=== PATIENT | male | born 1945 | race African-American/Black ===

== ENCOUNTER 2022-07-08 15:57 | Inpatient (IN) | payer MEDICARE, MEDICAID ==
[~2022-07-08] VITALS: Ht 144.8 cm; Wt 85.2 kg
[2022-07-08] MEDS ORDERED: HYDROCORTISONE SOD SUCC 100 MG/2 ML VIAL IVP ONE (16:15)
[2022-07-08] MEDS ORDERED: SODIUM CHLORIDE 0.9% 1,000 ML IV ONE (16:15)
[2022-07-08 16:37] LABS: ABG BASE EXCESS -8.1 mmol/L (-2.0-3.0); ABG CARBOXYHEMOGLOBIN 0.7 % (0.0-1.5); ABG HCO3 17.9 mmol/L (22.0-26.0); ABG METHEMOGLOBIN 0.1 % (0.0-1.5); ABG OXYGEN CONTENT 11.2 mL/dL (15.0-23.0); ABG OXYHEMOGLOBIN 76.3 % (94.0-100.0); ABG PCO2 41 mmHg (35-45); ABG PH 7.278 (7.35-7.450); ABG TOTAL HEMOGLOBIN 10.4 G/dL (12.0-18.0); PO2, ARTERIAL BG 42.4 mmHg (75.0-83.0); SOURCE, BLOOD GAS ARTERIAL; TEMPERATURE, FAHRENHEIT, BG 97.7 FAHREN (96.0-98.6)
[2022-07-08 16:38] LABS: ABG OXYGEN SATURATION 76.9 % (95.0-98.0); O2 DEVICE,BLOOD GAS CANNULA (ROOM AIR); SITE, BLOOD GAS RT BRACHIAL
[2022-07-08] MEDS ORDERED: FUROSEMIDE 40 MG/4 ML VIAL IVP ONE (16:45)
[2022-07-08 17:21] LABS: BASOPHILS % (AUTO) 0.5 % (0.0-2.0); EOSINOPHILS % (AUTO) 0.2 % (1.0-6.0); HEMATOCRIT 31.5 % (41-53); HEMOGLOBIN 9.7 g/dL (13.5-17.5); LYMPHOCYTES # (AUTO) 0.4 K/uL (1.0-4.8); MEAN CORPUSCULAR HEMOGLOBIN 29.9 pg (26.0-34.0); MEAN CORPUSCULAR HGB CONC 30.9 G/dL (31.0-37.0); MEAN CORPUSCULAR VOLUME 97 fL (80-100); MONOCYTES # (AUTO) 0.2 K/uL (0.1-1.0); MONOCYTES % (AUTO) 2.5 % (2.0-9.0); NEUTROPHILS # (AUTO) 7.4 K/uL (1.8-7.7); PLATELET COUNT (AUTO) 112 K/uL (150-450); RED BLOOD CELL COUNT(AUTO) 3.25 MIL/uL (4.50-5.90); RED CELL DISTRIBUTION WIDTH 23.9 % (11.5-14.5)
[2022-07-08 17:23] LABS: NEUTROPHILS % (AUTO) 91.8 % (40.0-70.0)
[2022-07-08 17:36] LABS: ALBUMIN 1.7 g/dL (3.4-5.0); BILIRUBIN,TOTAL 0.5 mg/dL (0.1-1.0); CALCIUM, TOTAL 7.4 mg/dL (8.8-10.5); CREATININE 3.49 mg/dL (0.60-1.30); POTASSIUM 4.9 mmol/L (3.5-5.1); TOTAL PROTEIN, SERUM 5.4 g/dL (6.4-8.2)
[2022-07-08 17:38] LABS: COVID AG,FIA SOURCE NASOPHARYNGEAL
[2022-07-08 17:38] LABS: LACTIC ACID 0.9 mmol/L (0.4-2.0)
[2022-07-08 17:48] LABS: APPEARANCE,URINE TURBID (CLEAR); BILIRUBIN,URINE NEGATIVE (NEGATIVE); GLUCOSE, URINE (UA) NEGATIVE (NEGATIVE); KETONES,URINE NEGATIVE (NEGATIVE); LEUKOCYTE ESTERASE ,URINE LARGE (NEGATIVE); NITRATE,URINE NEGATIVE (NEGATIVE); OCCULT BLOOD,URINE LARGE (NEGATIVE); PROTEIN,URINE 100-200,SEE CONFIRM mg/dL (NEGATIVE); SPECIFIC GRAVITIY, URINE 1.012 (1.003-1.030); UROBILINOGEN,URINE <=1.0 mg/dL (<=1.0)
[2022-07-08 18:03] LABS: BACTERIA,URINE Few /HPF (None Seen); RBC,URINE 26-50 /HPF (0-2); SQUAMOUS EPITHELIAL CELL,UR Few /LPF (None Seen); SULFOSALICYLIC ACID,URINE 3+ (Negative); WBC,URINE 51-100 /HPF (0-5); YEAST,URINE Many /HPF (None Seen)
[2022-07-08] MEDS ORDERED: CefTRIAXone 1 GM/DEXTROSE 50 ML IV ONE (18:15)
[2022-07-08] MEDS ORDERED: ACETAMINOPHEN 325 MG TABLET PO PRN (18:30)
[2022-07-08] MEDS ORDERED: ONDANSETRON HCL 4 MG/2 ML VIAL IVP PRN (18:30)
[2022-07-08 18:45] LABS: CREATININE,URINE RANDOM 43.7 mg/dL (30.0-125.0)
[2022-07-08 20:14] LABS: ABG BASE EXCESS -9.3 mmol/L (-2.0-3.0); ABG HCO3 17.4 mmol/L (22.0-26.0); ABG METHEMOGLOBIN 0.3 % (0.0-1.5); ABG OXYGEN CONTENT 12.5 mL/dL (15.0-23.0); ABG OXYHEMOGLOBIN 81.8 % (94.0-100.0); ABG PCO2 32 mmHg (35-45); ABG PH 7.332 (7.35-7.450); ABG TOTAL HEMOGLOBIN 10.9 G/dL (12.0-18.0); SOURCE, BLOOD GAS ARTERIAL; TEMPERATURE, FAHRENHEIT, BG 94.1 FAHREN (96.0-98.6)
[2022-07-08 20:15] LABS: PO2, ARTERIAL BG 38.2 mmHg (75.0-83.0)
[2022-07-08 20:16] LABS: ABG A-A DIFF O2 648.6 mmHg (10-20.0); O2 DEVICE,BLOOD GAS BIPAP (ROOM AIR); SITE, BLOOD GAS RT BRACHIAL
[2022-07-08 20:17] LABS: INSPIRATORY TIME, BG 0.9 SEC; SPONTANEOUS VT, BG 847 ml
[2022-07-08 20:26] LABS: GLUCOSE,POINT OF CARE 140 MG/DL (70-110)
[2022-07-08] MEDS ORDERED: *CLINICAL-CEFEPIME DOSING CLINICAL ONE (20:45)
[2022-07-08] MEDS ORDERED: ETOMIDATE 2 MG/ML 10 ML VIAL IVP ONE (21:00)
[2022-07-08] MEDS ORDERED: ROCURONIUM BROMIDE 10 MG/ML 5 ML VIAL IVP ONE (21:00)
[2022-07-08] MEDS ORDERED: FentaNYL CIT 1000MCG/0.9% NACL 100 ML IV PRN (21:00)
[2022-07-08] MEDS: CHLORHEXIDINE GLUCONATE 0.12% 15 ML UDCUP ORAL RINSE MM SCH (21:00)
[2022-07-08] MEDS ORDERED: MIDAZOLAM HCL 100 MG in SODIUM CHLORIDE 0.9% 180 ML IV PRN (21:00)
[2022-07-08] MEDS: TACROLIMUS 1 MG CAPSULE PO SCH ×2 (21:00→23:41)
[2022-07-08] MEDS ORDERED: CEFEPIME HCL 0.5 GM in DEXTROSE 5%-WATER 50 ML IV ONE (21:30)
[2022-07-08] MEDS ORDERED: VANCOMYCIN HCL 1.25 GM in DEXTROSE 5%-WATER 250 ML IV ONE (21:30)
[2022-07-08] MEDS ORDERED: VANCOMYCIN HCL 1 GM in DEXTROSE 5%-WATER 250 ML IV SCH (21:30)
[2022-07-08] MEDS: FentaNYL CIT 1000MCG/0.9% NACL 100 ML IV PRN (21:33)
[2022-07-08] MEDS ORDERED: DEXTROSE 50%-WATER 25 GM/50 ML SYRINGE IVP PRN (21:45)
[2022-07-08 22:43] LABS: ABG A-A DIFF O2 596.1 mmHg (10-20.0); ABG HCO3 16.6 mmol/L (22.0-26.0); ABG METHEMOGLOBIN 0.3 % (0.0-1.5); ABG OXYGEN CONTENT 15.3 mL/dL (15.0-23.0); ABG OXYHEMOGLOBIN 97.7 % (94.0-100.0); ABG PCO2 28 mmHg (35-45); ABG PH 7.343 (7.35-7.450); PO2, ARTERIAL BG 94.7 mmHg (75.0-83.0); SITE, BLOOD GAS RT BRACHIAL; SOURCE, BLOOD GAS ARTERIAL; TEMPERATURE, FAHRENHEIT, BG 94.5 FAHREN (96.0-98.6)
[2022-07-08 22:44] LABS: O2 DEVICE,BLOOD GAS VENTILATOR (ROOM AIR); PEEP,BG 5 cm H2O; SPONTANEOUS VT, BG 506 ml; VT, ABG 500 ml
[2022-07-09] MEDS: HEPARIN SODIUM,PORCINE 5,000 UNITS/ML VIAL SQ SCH ×4 (00:40→23:59)
[2022-07-09] MEDS: TACROLIMUS 1 MG CAPSULE PO SCH ×3 (01:16→20:53)
[2022-07-09] MEDS ORDERED: HYDROCORTISONE SOD SUCC 100 MG/2 ML VIAL IVP SCH (01:18)
[2022-07-09 04:00] LABS: AMPHET/METH SCREEN,URINE NEGATIVE (NEGATIVE); BARBITURATE SCREEN, URINE NEGATIVE (NEGATIVE); BENZODIAZEPINES SCREEN,URINE POSITIVE (NEGATIVE); CANNABINOID SCREEN,URINE NEGATIVE (NEGATIVE); COCAINE SCREEN,URINE NEGATIVE (NEGATIVE); METHADONE SCREEN, URINE NEGATIVE (NEGATIVE); OPIATE SCREEN,URINE NEGATIVE (NEGATIVE)
[2022-07-09 04:01] LABS: PHENCYCLIDINE SCREEN,URINE NEGATIVE (NEGATIVE)
[2022-07-09 05:00] VITALS: BP 110/54
[2022-07-09 06:25] LABS: BASOPHILS % (AUTO) 0.2 % (0.0-2.0); EOSINOPHILS % (AUTO) 0 % (1.0-6.0); HEMATOCRIT 31.9 % (41-53); LYMPHOCYTES # (AUTO) 0.3 K/uL (1.0-4.8); LYMPHOCYTES % (AUTO) 4.5 % (22.0-44.0); MEAN CORPUSCULAR HGB CONC 31.3 G/dL (31.0-37.0); MEAN CORPUSCULAR VOLUME 96 fL (80-100); MONOCYTES # (AUTO) 0.1 K/uL (0.1-1.0); MONOCYTES % (AUTO) 1.9 % (2.0-9.0); NEUTROPHILS # (AUTO) 5.4 K/uL (1.8-7.7); PLATELET COUNT (AUTO) 111 K/uL (150-450); RED BLOOD CELL COUNT(AUTO) 3.33 MIL/uL (4.50-5.90); RED CELL DISTRIBUTION WIDTH 23.7 % (11.5-14.5)
[2022-07-09 06:30] LABS: CALCIUM, TOTAL 7.2 mg/dL (8.8-10.5); CREATININE 3.67 mg/dL (0.60-1.30); MAGNESIUM 1.6 mg/dL (1.80-2.40); PHOSPHORUS 7.3 mg/dL (2.5-4.9); POTASSIUM 4.5 mmol/L (3.5-5.1)
[2022-07-09 06:39] LABS: NEUTROPHILS % (AUTO) 93.4 % (40.0-70.0)
[2022-07-09 07:00] VITALS: BP 93/46
[2022-07-09 08:00] VITALS: BP 95/49
[2022-07-09] MEDS ORDERED: MAGNESIUM SULFATE 1 GM in DEXTROSE 5%-WATER 50 ML IV ONE (10:00)
[2022-07-09] MEDS: HYDROCORTISONE SOD SUCC 100 MG/2 ML VIAL IVP SCH ×3 (10:09→23:59)
[2022-07-09] MEDS: SODIUM BICARBONATE 75 MEQ in SODIUM CHLORIDE 0.45% 1,000 ML IV SCH ×2 (10:09→23:59)
[2022-07-09] MEDS: CHLORHEXIDINE GLUCONATE 0.12% 15 ML UDCUP ORAL RINSE MM SCH ×2 (10:09→23:59)
[2022-07-09] MEDS ORDERED: SODIUM CHLORIDE 0.9% 250 ML IV ONE (10:15)
[2022-07-09] MEDS: INSULIN LISPRO 100 UNITS/ML SQ PRN (11:29)
[2022-07-09 11:51] LABS: GLUCOSE,POINT OF CARE 162 MG/DL (70-110)
[2022-07-09 11:51] LABS: GLUCOSE,POINT OF CARE 179 MG/DL (70-110)
[2022-07-09 12:00] VITALS: BP 92/46
[2022-07-09 16:00] VITALS: BP 113/57
[2022-07-09] MEDS ORDERED: ACETYLCYSTEINE 10% 100 MG/ML 30 ML ORAL SOLUTION PO ONE (17:42)
[2022-07-09] MEDS ORDERED: LIDOCAINE 4% 50 ML SOLUTION TP ONE (17:42)
[2022-07-09] MEDS: FentaNYL CIT 1000MCG/0.9% NACL 100 ML IV PRN (17:54)
[2022-07-09] MEDS ORDERED: CefTRIAXone 1 GM/DEXTROSE 50 ML IV SCH (18:15)
[2022-07-09 19:16] LABS: GLUCOSE,POINT OF CARE 146 MG/DL (70-110)
[2022-07-09 20:00] VITALS: BP 108/87
[2022-07-09] MEDS: CEFEPIME HCL 1 GM in DEXTROSE 5%-WATER 50 ML IV SCH (20:34)
[2022-07-09] MEDS: ACETYLCYSTEINE 10% 100 MG/ML 4 ML NEB SOLUTION NEB SCH (23:14)
[2022-07-09] MEDS: ALBUTEROL SULFATE 2.5 MG/0.5 ML NEB SOLUTION NEB SCH (23:14)
[2022-07-10] VITALS: BP 108/87
[2022-07-10] MEDS: INSULIN LISPRO 100 UNITS/ML SQ PRN ×4 (00:05→22:40)
[2022-07-10 00:26] LABS: GLUCOSE,POINT OF CARE 179 MG/DL (70-110)
[2022-07-10] MEDS: ALBUTEROL SULFATE 2.5 MG/0.5 ML NEB SOLUTION NEB SCH ×6 (02:13→22:35)
[2022-07-10] MEDS: ACETYLCYSTEINE 10% 100 MG/ML 4 ML NEB SOLUTION NEB SCH ×6 (02:13→22:35)
[2022-07-10 04:00] VITALS: BP 108/87
[2022-07-10 05:32] LABS: GLUCOSE,POINT OF CARE 152 MG/DL (70-110)
[2022-07-10 07:58] LABS: CALCIUM, TOTAL 7.2 mg/dL (8.8-10.5); POTASSIUM 4.3 mmol/L (3.5-5.1)
[2022-07-10 08:00] VITALS: BP 114/52
[2022-07-10] MEDS: HEPARIN SODIUM,PORCINE 5,000 UNITS/ML VIAL SQ SCH ×2 (08:25→15:40)
[2022-07-10] MEDS: CHLORHEXIDINE GLUCONATE 0.12% 15 ML UDCUP ORAL RINSE MM SCH ×2 (08:25→20:11)
[2022-07-10] MEDS: TACROLIMUS 1 MG CAPSULE PO SCH (08:26)
[2022-07-10] MEDS: HYDROCORTISONE SOD SUCC 100 MG/2 ML VIAL IVP SCH ×2 (08:26→15:40)
[2022-07-10] MEDS ORDERED: MIDAZOLAM HCL 100 MG in SODIUM CHLORIDE 0.9% 180 ML IV PRN (08:45)
[2022-07-10] MEDS ORDERED: PROPOFOL 1000 MG/ISO-OSM 100 ML IV PRN (08:45)
[2022-07-10 09:15] LABS: MAGNESIUM 1.7 mg/dL (1.80-2.40); PHOSPHORUS 7.7 mg/dL (2.5-4.9)
[2022-07-10] MEDS ORDERED: VANCOMYCIN HCL 1 GM in DEXTROSE 5%-WATER 250 ML IV PRN (10:15)
[2022-07-10] MEDS ORDERED: NOREPINEPHRINE 8 MG/D5%-WATER 250 ML IV PRN (10:15)
[2022-07-10 12:00] VITALS: BP 107/42
[2022-07-10] MEDS: FLUCONAZOLE 200 MG/NACL ISOOSM 100 ML IV SCH (14:22)
[2022-07-10] MEDS: FentaNYL CIT 1000MCG/0.9% NACL 100 ML IV PRN (14:27)
[2022-07-10 15:06] LABS: GLUCOSE,POINT OF CARE 148 MG/DL (70-110)
[2022-07-10] MEDS: SODIUM BICARBONATE 75 MEQ in SODIUM CHLORIDE 0.45% 1,000 ML IV SCH (15:36)
[2022-07-10 16:00] VITALS: BP 117/48
[2022-07-10 19:26] LABS: GLUCOSE,POINT OF CARE 153 MG/DL (70-110)
[2022-07-10 20:00] VITALS: BP 101/40
[2022-07-10] MEDS: CEFEPIME HCL 1 GM in DEXTROSE 5%-WATER 50 ML IV SCH (20:10)
[2022-07-11] VITALS: BP 101/53
[2022-07-11] MEDS: HYDROCORTISONE SOD SUCC 100 MG/2 ML VIAL IVP SCH ×3 (00:24→15:39)
[2022-07-11] MEDS: HEPARIN SODIUM,PORCINE 5,000 UNITS/ML VIAL SQ SCH ×3 (00:24→15:40)
[2022-07-11] MEDS: ACETYLCYSTEINE 10% 100 MG/ML 4 ML NEB SOLUTION NEB SCH ×6 (01:55→22:37)
[2022-07-11] MEDS: ALBUTEROL SULFATE 2.5 MG/0.5 ML NEB SOLUTION NEB SCH ×6 (01:55→22:37)
[2022-07-11 04:00] VITALS: BP 101/41
[2022-07-11 05:51] LABS: GLUCOSE,POINT OF CARE 155 MG/DL (70-110)
[2022-07-11] MEDS: INSULIN LISPRO 100 UNITS/ML SQ PRN ×4 (05:51→21:37)
[2022-07-11] MEDS: FentaNYL CIT 1000MCG/0.9% NACL 100 ML IV PRN (06:18)
[2022-07-11] MEDS: SODIUM BICARBONATE 75 MEQ in SODIUM CHLORIDE 0.45% 1,000 ML IV SCH ×2 (06:18→21:37)
[2022-07-11 06:19] LABS: CALCIUM, TOTAL 7.2 mg/dL (8.8-10.5); CREATININE 4.06 mg/dL (0.60-1.30); POTASSIUM 4.6 mmol/L (3.5-5.1)
[2022-07-11 06:23] LABS: MAGNESIUM 1.7 mg/dL (1.80-2.40)
[2022-07-11 06:34] LABS: VANCOMYCIN,RANDOM 12.1 mcg/mL (25.0-50.0)
[2022-07-11 07:01] LABS: GLUCOSE,POINT OF CARE 163 MG/DL (70-110)
[2022-07-11 08:00] VITALS: BP 112/48
[2022-07-11] MEDS: CHLORHEXIDINE GLUCONATE 0.12% 15 ML UDCUP ORAL RINSE MM SCH ×2 (08:05→20:34)
[2022-07-11] MEDS ORDERED: VANCOMYCIN HCL 750 MG in DEXTROSE 5%-WATER 250 ML IV ONE (10:00)
[2022-07-11 12:00] VITALS: BP 108/52
[2022-07-11] MEDS ORDERED: VANCOMYCIN HCL 1 GM in SODIUM CHLORIDE 0.9% 250 ML IV PRN (12:14)
[2022-07-11] MEDS ORDERED: NOREPINEPHRINE BITARTRATE IV PRN (12:15)
[2022-07-11] MEDS ORDERED: SODIUM CHLORIDE 0.9% IV PRN (12:15)
[2022-07-11 13:31] LABS: GLUCOSE,POINT OF CARE 167 MG/DL (70-110)
[2022-07-11 13:31] LABS: GLUCOSE,POINT OF CARE 158 MG/DL (70-110)
[2022-07-11] MEDS: FLUCONAZOLE 200 MG/NACL ISOOSM 100 ML IV SCH (14:24)
[2022-07-11] MEDS: VANCOMYCIN HCL 125 MG/2.5 ML SOLUTION ORAL.SYG PO SCH ×2 (14:25→18:52)
[2022-07-11] MEDS: MetroNIDAZOLE 500 MG TABLET PO SCH (15:39)
[2022-07-11 16:00] VITALS: BP 98/37
[2022-07-11 20:00] VITALS: BP 138/73
[2022-07-11] MEDS: CEFEPIME HCL 1 GM in DEXTROSE 5%-WATER 50 ML IV SCH (20:33)
[2022-07-11] MEDS: CEFEPIME HCL 1 GM in SODIUM CHLORIDE 0.9% 50 ML IV SCH (20:34)
[2022-07-11 21:01] LABS: GLUCOSE,POINT OF CARE 171 MG/DL (70-110)
[2022-07-12] VITALS: BP 138/73
[2022-07-12] MEDS: HYDROCORTISONE SOD SUCC 100 MG/2 ML VIAL IVP SCH ×4 (00:08→23:35)
[2022-07-12] MEDS: HEPARIN SODIUM,PORCINE 5,000 UNITS/ML VIAL SQ SCH ×4 (00:09→23:35)
[2022-07-12] MEDS: VANCOMYCIN HCL 125 MG/2.5 ML SOLUTION ORAL.SYG PO SCH ×5 (00:09→23:35)
[2022-07-12] MEDS: MetroNIDAZOLE 500 MG TABLET PO SCH ×4 (00:09→23:35)
[2022-07-12 01:46] LABS: GLUCOSE,POINT OF CARE 144 MG/DL (70-110)
[2022-07-12] MEDS ORDERED: SODIUM CHLORIDE 0.9% 250 ML IV ONE (03:27)
[2022-07-12] MEDS: ACETYLCYSTEINE 10% 100 MG/ML 4 ML NEB SOLUTION NEB SCH ×6 (03:52→23:00)
[2022-07-12] MEDS: ALBUTEROL SULFATE 2.5 MG/0.5 ML NEB SOLUTION NEB SCH ×6 (03:52→23:00)
[2022-07-12 04:00] VITALS: BP 146/95
[2022-07-12] MEDS: INSULIN LISPRO 100 UNITS/ML SQ PRN ×2 (05:41→20:33)
[2022-07-12 06:46] LABS: GLUCOSE,POINT OF CARE 148 MG/DL (70-110)
[2022-07-12 07:10] LABS: BASOPHILS % (AUTO) 0.2 % (0.0-2.0); EOSINOPHILS % (AUTO) 0 % (1.0-6.0); HEMATOCRIT 33.3 % (41-53); HEMOGLOBIN 10.5 g/dL (13.5-17.5); LYMPHOCYTES # (AUTO) 0.4 K/uL (1.0-4.8); LYMPHOCYTES % (AUTO) 4.5 % (22.0-44.0); MEAN CORPUSCULAR HGB CONC 31.7 G/dL (31.0-37.0); MEAN CORPUSCULAR VOLUME 95 fL (80-100); MONOCYTES # (AUTO) 0.4 K/uL (0.1-1.0); NEUTROPHILS # (AUTO) 8.1 K/uL (1.8-7.7); NEUTROPHILS % (AUTO) 91.3 % (40.0-70.0); PLATELET COUNT (AUTO) 101 K/uL (150-450); RED BLOOD CELL COUNT(AUTO) 3.52 MIL/uL (4.50-5.90); RED CELL DISTRIBUTION WIDTH 22.2 % (11.5-14.5)
[2022-07-12 07:24] LABS: ALBUMIN 1.8 g/dL (3.4-5.0); BILIRUBIN,TOTAL 0.4 mg/dL (0.1-1.0); CALCIUM, TOTAL 7.2 mg/dL (8.8-10.5); CREATININE 4.12 mg/dL (0.60-1.30); TOTAL PROTEIN, SERUM 5.4 g/dL (6.4-8.2)
[2022-07-12 07:32] LABS: C-REACTIVE PROTEIN QUANT 3.49 mg/dL (0.00-0.30)
[2022-07-12 08:00] VITALS: BP 161/87
[2022-07-12] MEDS: CHLORHEXIDINE GLUCONATE 0.12% 15 ML UDCUP ORAL RINSE MM SCH ×2 (08:09→20:23)
[2022-07-12 09:36] LABS: ABG BASE EXCESS -5.5 mmol/L (-2.0-3.0); ABG CARBOXYHEMOGLOBIN 0.6 % (0.0-1.5); ABG HCO3 20.3 mmol/L (22.0-26.0); ABG METHEMOGLOBIN 0.3 % (0.0-1.5); ABG OXYGEN CONTENT 13.1 mL/dL (15.0-23.0); ABG OXYHEMOGLOBIN 83.9 % (94.0-100.0); ABG PCO2 33 mmHg (35-45); ABG PH 7.388 (7.35-7.450); ABG TOTAL HEMOGLOBIN 11.1 G/dL (12.0-18.0); PO2, ARTERIAL BG 45.7 mmHg (75.0-83.0); SOURCE, BLOOD GAS ARTERIAL; TEMPERATURE, FAHRENHEIT, BG 97.4 FAHREN (96.0-98.6)
[2022-07-12 09:39] LABS: ABG OXYGEN SATURATION 84.7 % (95.0-98.0); SITE, BLOOD GAS RT BRACHIAL
[2022-07-12 09:40] LABS: CPAP, BG 5 cm H2O; O2 DEVICE,BLOOD GAS VENTILATOR (ROOM AIR); PRESSURE SUPPORT, BG 8 cm H2O; SPONTANEOUS VT, BG 613 ml; VENT MODE, BG CPAP (ROOM AIR)
[2022-07-12 11:56] LABS: GLUCOSE,POINT OF CARE 136 MG/DL (70-110)
[2022-07-12 12:00] VITALS: BP 125/71
[2022-07-12] MEDS: FUROSEMIDE 20 MG/2 ML VIAL IVP SCH ×2 (12:32→20:23)
[2022-07-12] MEDS: FLUCONAZOLE 200 MG/NACL ISOOSM 100 ML IV SCH (14:22)
[2022-07-12 16:00] VITALS: BP 139/75
[2022-07-12] MEDS: FentaNYL CIT 1000MCG/0.9% NACL 100 ML IV PRN (17:27)
[2022-07-12 18:16] LABS: GLUCOSE,POINT OF CARE 172 MG/DL (70-110)
[2022-07-12 20:00] VITALS: BP 147/70
[2022-07-12] MEDS: CEFEPIME HCL 1 GM in SODIUM CHLORIDE 0.9% 50 ML IV SCH (22:36)
[2022-07-12 22:41] LABS: GLUCOSE,POINT OF CARE 190 MG/DL (70-110)
[2022-07-13] VITALS: BP 156/65
[2022-07-13] MEDS: ACETYLCYSTEINE 10% 100 MG/ML 4 ML NEB SOLUTION NEB SCH ×6 (03:00→22:36)
[2022-07-13] MEDS: ALBUTEROL SULFATE 2.5 MG/0.5 ML NEB SOLUTION NEB SCH ×6 (03:00→22:37)
[2022-07-13 04:00] VITALS: BP 147/76
[2022-07-13] MEDS: INSULIN LISPRO 100 UNITS/ML SQ PRN ×3 (06:26→23:38)
[2022-07-13] MEDS: VANCOMYCIN HCL 125 MG/2.5 ML SOLUTION ORAL.SYG PO SCH ×4 (06:27→23:38)
[2022-07-13 06:30] LABS: CALCIUM, TOTAL 7.4 mg/dL (8.8-10.5); CREATININE 4.11 mg/dL (0.60-1.30); POTASSIUM 4.5 mmol/L (3.5-5.1)
[2022-07-13 06:51] LABS: C-REACTIVE PROTEIN QUANT 2.82 mg/dL (0.00-0.30); VANCOMYCIN,RANDOM 16.9 mcg/mL (25.0-50.0)
[2022-07-13 08:00] VITALS: BP 163/72
[2022-07-13] MEDS ORDERED: VANCOMYCIN HCL 750 MG in SODIUM CHLORIDE 0.9% 250 ML IV SCH (08:00)
[2022-07-13] MEDS: HEPARIN SODIUM,PORCINE 5,000 UNITS/ML VIAL SQ SCH ×3 (08:07→23:39)
[2022-07-13] MEDS: FUROSEMIDE 20 MG/2 ML VIAL IVP SCH ×2 (08:07→21:40)
[2022-07-13] MEDS: HYDROCORTISONE SOD SUCC 100 MG/2 ML VIAL IVP SCH ×3 (08:08→23:38)
[2022-07-13] MEDS: MetroNIDAZOLE 500 MG TABLET PO SCH (08:08)
[2022-07-13] MEDS: CHLORHEXIDINE GLUCONATE 0.12% 15 ML UDCUP ORAL RINSE MM SCH ×2 (08:08→21:40)
[2022-07-13] MEDS: CITRIC ACID/SODIUM CITRATE 30 ML SOLUTION UDCUP NG SCH ×2 (09:50→21:40)
[2022-07-13] MEDS: CALCITRIOL 0.25 MCG CAPSULE NG SCH (09:50)
[2022-07-13] MEDS ORDERED: 0.9% SODIUM CHLORIDE 5 ML NEB SOLUTION NEB ONE ×2 (10:56→16:15)
[2022-07-13 11:41] LABS: GLUCOSE,POINT OF CARE 165 MG/DL (70-110)
[2022-07-13 12:00] VITALS: BP 158/79
[2022-07-13] MEDS ORDERED: *CLINICAL-MEROPENEM DOSING CLINICAL ONE (12:00)
[2022-07-13] MEDS ORDERED: MEROPENEM 1 GM in SODIUM CHLORIDE 0.9% 100 ML IV ONE (12:15)
[2022-07-13] MEDS: FLUCONAZOLE 200 MG/NACL ISOOSM 100 ML IV SCH (13:50)
[2022-07-13] MEDS: FentaNYL CIT 1000MCG/0.9% NACL 100 ML IV PRN (15:37)
[2022-07-13 16:00] VITALS: BP 130/56
[2022-07-13 17:28] LABS: APPEARANCE,URINE HAZY (CLEAR); BILIRUBIN,URINE NEGATIVE (NEGATIVE); GLUCOSE, URINE (UA) NEGATIVE (NEGATIVE); KETONES,URINE NEGATIVE (NEGATIVE); LEUKOCYTE ESTERASE ,URINE LARGE (NEGATIVE); NITRATE,URINE NEGATIVE (NEGATIVE); OCCULT BLOOD,URINE LARGE (NEGATIVE); PH,URINE 5.5 (5.0-8.0); PROTEIN,URINE 100-200,SEE CONFIRM mg/dL (NEGATIVE); SPECIFIC GRAVITIY, URINE 1.008 (1.003-1.030); UROBILINOGEN,URINE <=1.0 mg/dL (<=1.0)
[2022-07-13 17:36] LABS: SULFOSALICYLIC ACID,URINE 4+ (Negative)
[2022-07-13 17:38] LABS: YEAST,URINE Few /HPF (None Seen)
[2022-07-13 17:39] LABS: AMORPHOUS SEDIMENT,UR Few /LPF (None Seen); BACTERIA,URINE Moderate /HPF (None Seen); SQUAMOUS EPITHELIAL CELL,UR Few /LPF (None Seen)
[2022-07-13 17:40] LABS: RBC,URINE >100 /HPF (0-2); WBC,URINE 51-100 /HPF (0-5)
[2022-07-13 20:00] VITALS: BP 145/67
[2022-07-13] MEDS: MEROPENEM 500 MG in SODIUM CHLORIDE 0.9% 50 ML IV SCH (21:42)
[2022-07-13] MEDS ORDERED: SODIUM CHLORIDE 0.9% 250 ML IV ONE (22:56)
[2022-07-13 23:46] LABS: GLUCOSE,POINT OF CARE 128 MG/DL (70-110)
[2022-07-13 23:46] LABS: GLUCOSE,POINT OF CARE 164 MG/DL (70-110)
[2022-07-13 23:46] LABS: GLUCOSE,POINT OF CARE 183 MG/DL (70-110)
[2022-07-14] VITALS (12 sets, daily range): BP systolic 133–166; BP diastolic 63–83
[2022-07-14] MEDS: ACETYLCYSTEINE 10% 100 MG/ML 4 ML NEB SOLUTION NEB SCH ×6 (03:52→22:40)
[2022-07-14] MEDS: ALBUTEROL SULFATE 2.5 MG/0.5 ML NEB SOLUTION NEB SCH ×6 (03:52→22:40)
[2022-07-14] MEDS: INSULIN LISPRO 100 UNITS/ML SQ PRN ×2 (06:18→21:13)
[2022-07-14] MEDS: VANCOMYCIN HCL 125 MG/2.5 ML SOLUTION ORAL.SYG PO SCH ×4 (06:19→23:40)
[2022-07-14 06:25] LABS: CALCIUM, TOTAL 7.7 mg/dL (8.8-10.5); CREATININE 4.22 mg/dL (0.60-1.30); POTASSIUM 3.9 mmol/L (3.5-5.1)
[2022-07-14] MEDS: HYDROCORTISONE SOD SUCC 100 MG/2 ML VIAL IVP SCH ×3 (08:02→23:40)
[2022-07-14] MEDS: CITRIC ACID/SODIUM CITRATE 30 ML SOLUTION UDCUP NG SCH ×2 (08:02→20:10)
[2022-07-14] MEDS: HEPARIN SODIUM,PORCINE 5,000 UNITS/ML VIAL SQ SCH ×3 (08:02→23:41)
[2022-07-14] MEDS: FUROSEMIDE 20 MG/2 ML VIAL IVP SCH ×2 (08:02→20:09)
[2022-07-14] MEDS: CALCITRIOL 0.25 MCG CAPSULE NG SCH (08:02)
[2022-07-14] MEDS: CHLORHEXIDINE GLUCONATE 0.12% 15 ML UDCUP ORAL RINSE MM SCH ×2 (08:02→20:10)
[2022-07-14 08:06] LABS: ALPHA-1 (IFE & PEP) 0.3 g/dL (0.0-0.4); BETA (IFE & ELP) 0.7 g/dL (0.7-1.3); GAMMA GLOBULINS (IFE & ELP) 0.8 g/dL (0.4-1.8); IGM (IMMUNOFIXATION) 24 mg/dL (15-143)
[2022-07-14 09:51] LABS: GLUCOSE,POINT OF CARE 164 MG/DL (70-110)
[2022-07-14 11:46] LABS: GLUCOSE,POINT OF CARE 155 MG/DL (70-110)
[2022-07-14] MEDS: MEROPENEM 500 MG in SODIUM CHLORIDE 0.9% 50 ML IV SCH ×2 (11:53→22:13)
[2022-07-14 11:56] LABS: ABG BASE EXCESS -5.7 mmol/L (-2.0-3.0); ABG CARBOXYHEMOGLOBIN 0.7 % (0.0-1.5); ABG HCO3 20.3 mmol/L (22.0-26.0); ABG METHEMOGLOBIN 0.3 % (0.0-1.5); ABG OXYGEN SATURATION 93.1 % (95.0-98.0); ABG OXYHEMOGLOBIN 92.2 % (94.0-100.0); ABG PCO2 33 mmHg (35-45); ABG PH 7.386 (7.35-7.450); ABG TOTAL HEMOGLOBIN 10.8 G/dL (12.0-18.0); PO2, ARTERIAL BG 65.4 mmHg (75.0-83.0); SITE, BLOOD GAS RT BRACHIAL; SOURCE, BLOOD GAS ARTERIAL; TEMPERATURE, FAHRENHEIT, BG 98.6 FAHREN (96.0-98.6)
[2022-07-14 11:57] LABS: ABG A-A DIFF O2 109.8 mmHg (10-20.0); CPAP, BG 5 cm H2O; O2 DEVICE,BLOOD GAS VENTILATOR (ROOM AIR); PRESSURE SUPPORT, BG 5 cm H2O; SPONTANEOUS VT, BG 525 ml; VENT MODE, BG CPAP (ROOM AIR)
[2022-07-14] MEDS: FLUCONAZOLE 200 MG/NACL ISOOSM 100 ML IV SCH (13:17)
[2022-07-14] MEDS ORDERED: 0.9% SODIUM CHLORIDE 5 ML NEB SOLUTION NEB ONE (15:00)
[2022-07-14] MEDS ORDERED: SODIUM CHLORIDE 0.9% 2,000 ML ONE (15:08)
[2022-07-14 16:46] LABS: GLUCOSE,POINT OF CARE 166 MG/DL (70-110)
[2022-07-14] MEDS: FentaNYL CIT 1000MCG/0.9% NACL 100 ML IV PRN (20:11)
[2022-07-15] VITALS (15 sets, daily range): BP systolic 91–167; BP diastolic 56–88
[2022-07-15] MEDS: ALBUTEROL SULFATE 2.5 MG/0.5 ML NEB SOLUTION NEB SCH ×6 (03:06→23:09)
[2022-07-15] MEDS: ACETYLCYSTEINE 10% 100 MG/ML 4 ML NEB SOLUTION NEB SCH ×6 (03:06→23:09)
[2022-07-15] MEDS: VANCOMYCIN HCL 125 MG/2.5 ML SOLUTION ORAL.SYG PO SCH ×3 (05:04→18:00)
[2022-07-15] MEDS: INSULIN LISPRO 100 UNITS/ML SQ PRN ×2 (05:10→12:19)
[2022-07-15 05:59] LABS: BASOPHILS % (AUTO) 0.3 % (0.0-2.0); EOSINOPHILS % (AUTO) 0 % (1.0-6.0); HEMATOCRIT 30.3 % (41-53); HEMOGLOBIN 9.5 g/dL (13.5-17.5); LYMPHOCYTES # (AUTO) 0.3 K/uL (1.0-4.8); LYMPHOCYTES % (AUTO) 2.9 % (22.0-44.0); MEAN CORPUSCULAR HEMOGLOBIN 29.5 pg (26.0-34.0); MEAN CORPUSCULAR HGB CONC 31.3 G/dL (31.0-37.0); MEAN CORPUSCULAR VOLUME 94 fL (80-100); MONOCYTES # (AUTO) 0.2 K/uL (0.1-1.0); MONOCYTES % (AUTO) 1.8 % (2.0-9.0); NEUTROPHILS # (AUTO) 9.4 K/uL (1.8-7.7); PLATELET COUNT (AUTO) 84 K/uL (150-450); RED BLOOD CELL COUNT(AUTO) 3.21 MIL/uL (4.50-5.90); RED CELL DISTRIBUTION WIDTH 22.4 % (11.5-14.5)
[2022-07-15 06:07] LABS: ALBUMIN 1.6 g/dL (3.4-5.0); BILIRUBIN,TOTAL 0.5 mg/dL (0.1-1.0); C-REACTIVE PROTEIN QUANT 1.78 mg/dL (0.00-0.30); CALCIUM, TOTAL 7.4 mg/dL (8.8-10.5); CREATININE 4.21 mg/dL (0.60-1.30); POTASSIUM 3.5 mmol/L (3.5-5.1); TOTAL PROTEIN, SERUM 4.7 g/dL (6.4-8.2)
[2022-07-15 06:11] LABS: GLUCOSE,POINT OF CARE 197 MG/DL (70-110)
[2022-07-15 06:11] LABS: GLUCOSE,POINT OF CARE 209 MG/DL (70-110)
[2022-07-15] MEDS: CHLORHEXIDINE GLUCONATE 0.12% 15 ML UDCUP ORAL RINSE MM SCH ×2 (07:58→20:55)
[2022-07-15] MEDS: CALCITRIOL 0.25 MCG CAPSULE NG SCH (07:58)
[2022-07-15] MEDS: CITRIC ACID/SODIUM CITRATE 30 ML SOLUTION UDCUP NG SCH ×2 (07:58→20:55)
[2022-07-15] MEDS: HYDROCORTISONE SOD SUCC 100 MG/2 ML VIAL IVP SCH ×2 (07:59→16:15)
[2022-07-15] MEDS: FUROSEMIDE 20 MG/2 ML VIAL IVP SCH ×2 (07:59→20:55)
[2022-07-15] MEDS: HEPARIN SODIUM,PORCINE 5,000 UNITS/ML VIAL SQ SCH ×2 (07:59→16:00)
[2022-07-15 12:04] LABS: ABG CARBOXYHEMOGLOBIN 0.3 % (0.0-1.5); ABG HCO3 22.3 mmol/L (22.0-26.0); ABG METHEMOGLOBIN 0.2 % (0.0-1.5); ABG OXYGEN SATURATION 94.8 % (95.0-98.0); ABG OXYHEMOGLOBIN 94.3 % (94.0-100.0); ABG PCO2 36 mmHg (35-45); ABG PH 7.401 (7.35-7.450); ABG TOTAL HEMOGLOBIN 10.5 G/dL (12.0-18.0); PO2, ARTERIAL BG 76.2 mmHg (75.0-83.0); SOURCE, BLOOD GAS ARTERIAL; TEMPERATURE, FAHRENHEIT, BG 99.3 FAHREN (96.0-98.6)
[2022-07-15] MEDS: MEROPENEM 500 MG in SODIUM CHLORIDE 0.9% 50 ML IV SCH (12:14)
[2022-07-15 12:42] LABS: SITE, BLOOD GAS RT RADIAL
[2022-07-15 12:43] LABS: ABG A-A DIFF O2 167.3 mmHg (10-20.0); O2 DEVICE,BLOOD GAS VENTILATOR (ROOM AIR)
[2022-07-15 12:44] LABS: PEEP,BG 0 cm H2O
[2022-07-15 12:45] LABS: PRESSURE SUPPORT, BG 8 cm H2O; SPONTANEOUS VT, BG 563 ml; VENT MODE, BG Press. Support Vent. (ROOM AIR)
[2022-07-15 13:01] LABS: GLUCOSE,POINT OF CARE 224 MG/DL (70-110)
[2022-07-15] MEDS: FLUCONAZOLE 200 MG/NACL ISOOSM 100 ML IV SCH (14:16)
[2022-07-15 15:06] LABS: S PNEUMO SOURCE Urine; STREP PNEUMONIAE AG URINE Negative (Negative)
[2022-07-15 16:06] LABS: LEGIONELLA PNEUMO AG URINE Negative (Negative)
[2022-07-16] VITALS: BP 169/80
[2022-07-16] MEDS ORDERED: SODIUM CHLORIDE 0.9% 250 ML IV ONE (00:27)
[2022-07-16] MEDS: MEROPENEM 500 MG in SODIUM CHLORIDE 0.9% 50 ML IV SCH ×3 (00:30→23:42)
[2022-07-16] MEDS: HYDROCORTISONE SOD SUCC 100 MG/2 ML VIAL IVP SCH ×4 (00:31→23:42)
[2022-07-16] MEDS: HEPARIN SODIUM,PORCINE 5,000 UNITS/ML VIAL SQ SCH ×4 (00:31→23:43)
[2022-07-16] MEDS: VANCOMYCIN HCL 125 MG/2.5 ML SOLUTION ORAL.SYG PO SCH ×5 (00:32→23:42)
[2022-07-16] MEDS: ACETYLCYSTEINE 10% 100 MG/ML 4 ML NEB SOLUTION NEB SCH ×6 (02:50→23:00)
[2022-07-16] MEDS: ALBUTEROL SULFATE 2.5 MG/0.5 ML NEB SOLUTION NEB SCH ×6 (02:50→23:00)
[2022-07-16 03:06] LABS: GLUCOSE,POINT OF CARE 162 MG/DL (70-110)
[2022-07-16 03:06] LABS: GLUCOSE,POINT OF CARE 174 MG/DL (70-110)
[2022-07-16 04:00] VITALS: BP 120/55
[2022-07-16] MEDS: INSULIN LISPRO 100 UNITS/ML SQ PRN ×6 (06:29→21:58)
[2022-07-16 08:00] VITALS: BP 165/58
[2022-07-16] MEDS: CITRIC ACID/SODIUM CITRATE 30 ML SOLUTION UDCUP NG SCH ×2 (08:03→19:53)
[2022-07-16] MEDS: FUROSEMIDE 20 MG/2 ML VIAL IVP SCH ×2 (08:04→19:53)
[2022-07-16] MEDS: CALCITRIOL 0.25 MCG CAPSULE NG SCH (08:05)
[2022-07-16] MEDS: CHLORHEXIDINE GLUCONATE 0.12% 15 ML UDCUP ORAL RINSE MM SCH ×2 (08:06→19:53)
[2022-07-16 08:28] LABS: CALCIUM, TOTAL 7.6 mg/dL (8.8-10.5)
[2022-07-16] MEDS ORDERED: POTASSIUM CHLORIDE 10% 40 MEQ/30 ML LIQUID UDCUP PO ONE (09:45)
[2022-07-16 09:56] LABS: GLUCOSE,POINT OF CARE 197 MG/DL (70-110)
[2022-07-16 12:00] VITALS: BP 156/56
[2022-07-16] MEDS: FLUCONAZOLE 200 MG/NACL ISOOSM 100 ML IV SCH (14:06)
[2022-07-16 16:00] VITALS: BP 168/70
[2022-07-16 19:50] LABS: GLUCOSE,POINT OF CARE 234 MG/DL (70-110)
[2022-07-16] MEDS: TACROLIMUS 0.5 MG CAPSULE PO SCH (19:53)
[2022-07-16 19:55] LABS: GLUCOSE,POINT OF CARE 202 MG/DL (70-110)
[2022-07-16 20:00] VITALS: BP 170/86
[2022-07-16 21:26] LABS: GLUCOSE,POINT OF CARE 247 MG/DL (70-110)
[2022-07-17] VITALS (7 sets, daily range): BP systolic 116–175; BP diastolic 56–97
[2022-07-17] MEDS ORDERED: NITROGLYCERIN 0.4 MG SUBLINGUAL TABLET #25 SL ONE (01:15)
[2022-07-17] MEDS: HydrALAZINE HCL 20 MG/ML VIAL IVP PRN (01:29)
[2022-07-17] MEDS: ALBUTEROL SULFATE 2.5 MG/0.5 ML NEB SOLUTION NEB SCH ×6 (02:11→23:21)
[2022-07-17] MEDS: ACETYLCYSTEINE 10% 100 MG/ML 4 ML NEB SOLUTION NEB SCH ×6 (02:11→23:21)
[2022-07-17 05:34] LABS: BASOPHILS % (AUTO) 0.2 % (0.0-2.0); EOSINOPHILS % (AUTO) 0.1 % (1.0-6.0); HEMATOCRIT 32.1 % (41-53); HEMOGLOBIN 10.1 g/dL (13.5-17.5); LYMPHOCYTES # (AUTO) 0.4 K/uL (1.0-4.8); LYMPHOCYTES % (AUTO) 3.3 % (22.0-44.0); MEAN CORPUSCULAR HEMOGLOBIN 29.8 pg (26.0-34.0); MEAN CORPUSCULAR HGB CONC 31.4 G/dL (31.0-37.0); MEAN CORPUSCULAR VOLUME 95 fL (80-100); MONOCYTES # (AUTO) 0.4 K/uL (0.1-1.0); MONOCYTES % (AUTO) 2.9 % (2.0-9.0); NEUTROPHILS # (AUTO) 11.8 K/uL (1.8-7.7); PLATELET COUNT (AUTO) 70 K/uL (150-450); RED BLOOD CELL COUNT(AUTO) 3.39 MIL/uL (4.50-5.90); RED CELL DISTRIBUTION WIDTH 22.6 % (11.5-14.5)
[2022-07-17 05:36] LABS: NEUTROPHILS % (AUTO) 93.5 % (40.0-70.0)
[2022-07-17] MEDS: VANCOMYCIN HCL 125 MG/2.5 ML SOLUTION ORAL.SYG PO SCH ×6 (05:46→23:43)
[2022-07-17 05:48] LABS: ALBUMIN 1.6 g/dL (3.4-5.0); BILIRUBIN,TOTAL 0.7 mg/dL (0.1-1.0); C-REACTIVE PROTEIN QUANT 1.42 mg/dL (0.00-0.30); CALCIUM, TOTAL 7.3 mg/dL (8.8-10.5); CREATININE 3.15 mg/dL (0.60-1.30); POTASSIUM 3.1 mmol/L (3.5-5.1); TOTAL PROTEIN, SERUM 4.7 g/dL (6.4-8.2)
[2022-07-17] MEDS: INSULIN LISPRO 100 UNITS/ML SQ PRN ×3 (05:48→18:07)
[2022-07-17] MEDS: CHLORHEXIDINE GLUCONATE 0.12% 15 ML UDCUP ORAL RINSE MM SCH ×2 (07:41→23:43)
[2022-07-17] MEDS: HEPARIN SODIUM,PORCINE 5,000 UNITS/ML VIAL SQ SCH ×4 (07:41→23:43)
[2022-07-17] MEDS: FUROSEMIDE 20 MG/2 ML VIAL IVP SCH ×2 (07:51→21:27)
[2022-07-17] MEDS: HYDROCORTISONE SOD SUCC 100 MG/2 ML VIAL IVP SCH ×2 (07:51→09:00)
[2022-07-17] MEDS: CITRIC ACID/SODIUM CITRATE 30 ML SOLUTION UDCUP NG SCH ×2 (07:52→21:27)
[2022-07-17] MEDS: CALCITRIOL 0.25 MCG CAPSULE NG SCH (07:52)
[2022-07-17] MEDS: TACROLIMUS 0.5 MG CAPSULE PO SCH ×2 (07:52→23:43)
[2022-07-17 09:11] LABS: GLUCOSE,POINT OF CARE 290 MG/DL (70-110)
[2022-07-17] MEDS: MEROPENEM 500 MG in SODIUM CHLORIDE 0.9% 50 ML IV SCH ×2 (11:51→23:51)
[2022-07-17 14:31] LABS: GLUCOSE,POINT OF CARE 282 MG/DL (70-110)
[2022-07-17] MEDS: FLUCONAZOLE 200 MG/NACL ISOOSM 100 ML IV SCH (15:13)
[2022-07-17] MEDS ORDERED: POTASSIUM CHLORIDE 20 MEQ ER TABLET PO ONE (16:15)
[2022-07-17 19:14] LABS: APPEARANCE,URINE HAZY (CLEAR); BILIRUBIN,URINE NEGATIVE (NEGATIVE); GLUCOSE, URINE (UA) 70-100 mg/dL (NEGATIVE); KETONES,URINE NEGATIVE (NEGATIVE); LEUKOCYTE ESTERASE ,URINE LARGE (NEGATIVE); NITRATE,URINE NEGATIVE (NEGATIVE); OCCULT BLOOD,URINE LARGE (NEGATIVE); PH,URINE 5.5 (5.0-8.0); PROTEIN,URINE 100-200,SEE CONFIRM mg/dL (NEGATIVE); UROBILINOGEN,URINE <=1.0 mg/dL (<=1.0)
[2022-07-17 19:24] LABS: SULFOSALICYLIC ACID,URINE 4+ (Negative)
[2022-07-17 19:25] LABS: RBC,URINE 51-100 /HPF (0-2); WBC,URINE >100 /HPF (0-5)
[2022-07-17 19:26] LABS: AMORPHOUS SEDIMENT,UR Few /LPF (None Seen); SQUAMOUS EPITHELIAL CELL,UR Few /LPF (None Seen)
[2022-07-17 19:27] LABS: BACTERIA,URINE Few /HPF (None Seen); YEAST,URINE Moderate /HPF (None Seen)
[2022-07-17 20:05] LABS: GLUCOMETER DEV NAME(LOC) 5S.2B; GLUCOSE,POINT OF CARE 224 MG/DL (70-110)
[2022-07-17] MEDS: METOPROLOL TARTRATE 25 MG TABLET PO SCH (21:27)
[2022-07-18] MEDS: INSULIN LISPRO 100 UNITS/ML SQ PRN ×4 (01:13→20:03)
[2022-07-18] MEDS: ACETYLCYSTEINE 10% 100 MG/ML 4 ML NEB SOLUTION NEB SCH ×6 (03:00→23:56)
[2022-07-18] MEDS: ALBUTEROL SULFATE 2.5 MG/0.5 ML NEB SOLUTION NEB SCH ×6 (03:00→23:56)
[2022-07-18 03:40] VITALS: BP 132/69
[2022-07-18] MEDS: VANCOMYCIN HCL 125 MG/2.5 ML SOLUTION ORAL.SYG PO SCH ×3 (06:03→18:15)
[2022-07-18 06:17] LABS: BASOPHILS % (AUTO) 0.5 % (0.0-2.0); CALCIUM, TOTAL 7.4 mg/dL (8.8-10.5); CREATININE 2.95 mg/dL (0.60-1.30); EOSINOPHILS % (AUTO) 0.8 % (1.0-6.0); HEMATOCRIT 34.3 % (41-53); HEMOGLOBIN 10.8 g/dL (13.5-17.5); LYMPHOCYTES # (AUTO) 0.6 K/uL (1.0-4.8); LYMPHOCYTES % (AUTO) 5.5 % (22.0-44.0); MEAN CORPUSCULAR HEMOGLOBIN 29.8 pg (26.0-34.0); MEAN CORPUSCULAR HGB CONC 31.4 G/dL (31.0-37.0); MEAN CORPUSCULAR VOLUME 95 fL (80-100); MONOCYTES # (AUTO) 0.3 K/uL (0.1-1.0); MONOCYTES % (AUTO) 2.3 % (2.0-9.0); NEUTROPHILS # (AUTO) 9.9 K/uL (1.8-7.7); PLATELET COUNT (AUTO) 63 K/uL (150-450); RED BLOOD CELL COUNT(AUTO) 3.62 MIL/uL (4.50-5.90); RED CELL DISTRIBUTION WIDTH 22.8 % (11.5-14.5)
[2022-07-18 06:19] LABS: POTASSIUM 2.9 mmol/L (3.5-5.1)
[2022-07-18 06:23] LABS: NEUTROPHILS % (AUTO) 90.9 % (40.0-70.0)
[2022-07-18 06:26] LABS: GLUCOMETER DEV NAME(LOC) 5N.3; GLUCOSE,POINT OF CARE 175 MG/DL (70-110)
[2022-07-18] MEDS ORDERED: POTASSIUM CHLORIDE 20 MEQ ER TABLET PO ONE ×2 (06:30→10:30)
[2022-07-18 07:45] VITALS: BP 152/79
[2022-07-18] MEDS: HEPARIN SODIUM,PORCINE 5,000 UNITS/ML VIAL SQ SCH ×3 (08:00→23:15)
[2022-07-18] MEDS: METOPROLOL TARTRATE 25 MG TABLET PO SCH ×2 (08:47→20:02)
[2022-07-18] MEDS: CALCITRIOL 0.25 MCG CAPSULE NG SCH (08:47)
[2022-07-18] MEDS: TACROLIMUS 0.5 MG CAPSULE PO SCH ×2 (08:47→22:33)
[2022-07-18] MEDS: FUROSEMIDE 20 MG/2 ML VIAL IVP SCH ×2 (08:48→20:02)
[2022-07-18] MEDS: CITRIC ACID/SODIUM CITRATE 30 ML SOLUTION UDCUP NG SCH (08:49)
[2022-07-18] MEDS: CHLORHEXIDINE GLUCONATE 0.12% 15 ML UDCUP ORAL RINSE MM SCH ×2 (08:49→20:01)
[2022-07-18] MEDS: HYDROCORTISONE SOD SUCC 100 MG/2 ML VIAL IVP SCH (08:49)
[2022-07-18 12:03] VITALS: BP 161/99
[2022-07-18] MEDS: MEROPENEM 500 MG in SODIUM CHLORIDE 0.9% 50 ML IV SCH ×2 (12:37→22:33)
[2022-07-18] MEDS: FLUCONAZOLE 200 MG/NACL ISOOSM 100 ML IV SCH (13:57)
[2022-07-18 15:55] VITALS: BP 144/73
[2022-07-18 17:06] LABS: GLUCOMETER DEV NAME(LOC) 5S.1B; GLUCOSE,POINT OF CARE 86 MG/DL (70-110)
[2022-07-18 19:40] VITALS: BP 184/97
[2022-07-18 20:46] LABS: GLUCOMETER DEV NAME(LOC) 5S.2B; GLUCOSE,POINT OF CARE 179 MG/DL (70-110)
[2022-07-18 20:56] LABS: GLUCOMETER DEV NAME(LOC) 5N.1C; GLUCOSE,POINT OF CARE 175 MG/DL (70-110)
[2022-07-18 20:56] LABS: GLUCOMETER DEV NAME(LOC) 5N.1C; GLUCOSE,POINT OF CARE 198 MG/DL (70-110)
[2022-07-18] MEDS: MELATONIN 3 MG TABLET PO PRN (22:33)
[2022-07-18 23:58] VITALS: BP 166/102
[2022-07-19] MEDS: VANCOMYCIN HCL 125 MG/2.5 ML SOLUTION ORAL.SYG PO SCH ×4 (00:29→18:43)
[2022-07-19] MEDS: ACETYLCYSTEINE 10% 100 MG/ML 4 ML NEB SOLUTION NEB SCH ×6 (03:03→22:48)
[2022-07-19] MEDS: ALBUTEROL SULFATE 2.5 MG/0.5 ML NEB SOLUTION NEB SCH ×6 (03:03→22:48)
[2022-07-19] MEDS: HydrALAZINE HCL 20 MG/ML VIAL IVP PRN (03:37)
[2022-07-19 04:24] VITALS: BP 174/95
[2022-07-19] MEDS ORDERED: CloNIDine HCL 0.1 MG TABLET PO PRN (06:15)
[2022-07-19 07:43] LABS: BASOPHILS % (AUTO) 0.9 % (0.0-2.0); EOSINOPHILS % (AUTO) 0.7 % (1.0-6.0); HEMATOCRIT 36.7 % (41-53); HEMOGLOBIN 11.4 g/dL (13.5-17.5); LYMPHOCYTES # (AUTO) 1.2 K/uL (1.0-4.8); LYMPHOCYTES % (AUTO) 10.1 % (22.0-44.0); MEAN CORPUSCULAR HEMOGLOBIN 29.4 pg (26.0-34.0); MEAN CORPUSCULAR HGB CONC 31.1 G/dL (31.0-37.0); MEAN CORPUSCULAR VOLUME 95 fL (80-100); MONOCYTES # (AUTO) 0.4 K/uL (0.1-1.0); MONOCYTES % (AUTO) 3.7 % (2.0-9.0); NEUTROPHILS # (AUTO) 9.8 K/uL (1.8-7.7); NEUTROPHILS % (AUTO) 84.6 % (40.0-70.0); RED BLOOD CELL COUNT(AUTO) 3.87 MIL/uL (4.50-5.90); RED CELL DISTRIBUTION WIDTH 22.3 % (11.5-14.5)
[2022-07-19 07:46] VITALS: BP 164/106
[2022-07-19 07:51] LABS: GLUCOMETER DEV NAME(LOC) 5S.2B; GLUCOSE,POINT OF CARE 100 MG/DL (70-110)
[2022-07-19 08:01] LABS: CALCIUM, TOTAL 7.1 mg/dL (8.8-10.5); CREATININE 2.89 mg/dL (0.60-1.30); POTASSIUM 3.5 mmol/L (3.5-5.1)
[2022-07-19 08:02] LABS: MAGNESIUM 1.1 mg/dL (1.80-2.40)
[2022-07-19 08:16] LABS: PLATELET COUNT (AUTO) 65 K/uL (150-450)
[2022-07-19] MEDS ORDERED: MAGNESIUM SULFATE 4 GM/WATER 100 ML IV ONE (09:00)
[2022-07-19] MEDS: HEPARIN SODIUM,PORCINE 5,000 UNITS/ML VIAL SQ SCH ×3 (09:24→23:30)
[2022-07-19] MEDS: HYDROCORTISONE SOD SUCC 100 MG/2 ML VIAL IVP SCH (09:24)
[2022-07-19] MEDS: CALCITRIOL 0.25 MCG CAPSULE NG SCH (09:25)
[2022-07-19] MEDS: FUROSEMIDE 20 MG/2 ML VIAL IVP SCH ×2 (09:25→20:23)
[2022-07-19] MEDS: METOPROLOL TARTRATE 25 MG TABLET PO SCH ×2 (09:26→20:23)
[2022-07-19] MEDS: TACROLIMUS 0.5 MG CAPSULE PO SCH ×2 (09:26→20:23)
[2022-07-19] MEDS: CHLORHEXIDINE GLUCONATE 0.12% 15 ML UDCUP ORAL RINSE MM SCH ×2 (09:34→20:23)
[2022-07-19] MEDS: AmLODIPine BESYLATE 5 MG TABLET PO SCH (09:37)
[2022-07-19] MEDS: INSULIN LISPRO 100 UNITS/ML SQ PRN ×3 (11:48→21:23)
[2022-07-19] MEDS: MEROPENEM 500 MG in SODIUM CHLORIDE 0.9% 50 ML IV SCH ×2 (11:48→23:30)
[2022-07-19 12:12] VITALS: BP 160/84
[2022-07-19 12:17] VITALS: BP 161/91
[2022-07-19] MEDS: FLUCONAZOLE 200 MG/NACL ISOOSM 100 ML IV SCH (14:29)
[2022-07-19 15:22] VITALS: BP 163/84
[2022-07-19 17:52] LABS: GLUCOMETER DEV NAME(LOC) 5N.1C; GLUCOSE,POINT OF CARE 167 MG/DL (70-110)
[2022-07-19 19:40] VITALS: BP 109/55
[2022-07-19 21:41] LABS: GLUCOMETER DEV NAME(LOC) 5S.2B; GLUCOSE,POINT OF CARE 143 MG/DL (70-110)
[2022-07-20 00:13] VITALS: BP 116/93
[2022-07-20] MEDS: VANCOMYCIN HCL 125 MG/2.5 ML SOLUTION ORAL.SYG PO SCH ×5 (00:40→23:24)
[2022-07-20] MEDS: ALBUTEROL SULFATE 2.5 MG/0.5 ML NEB SOLUTION NEB SCH ×6 (03:05→23:00)
[2022-07-20] MEDS: ACETYLCYSTEINE 10% 100 MG/ML 4 ML NEB SOLUTION NEB SCH ×6 (03:06→23:00)
[2022-07-20 05:30] VITALS: BP 130/73
[2022-07-20 05:55] LABS: BASOPHILS % (AUTO) 0.3 % (0.0-2.0); EOSINOPHILS % (AUTO) 0 % (1.0-6.0); HEMATOCRIT 35.1 % (41-53); HEMOGLOBIN 10.9 g/dL (13.5-17.5); LYMPHOCYTES # (AUTO) 0.9 K/uL (1.0-4.8); LYMPHOCYTES % (AUTO) 9.2 % (22.0-44.0); MEAN CORPUSCULAR HEMOGLOBIN 29.6 pg (26.0-34.0); MEAN CORPUSCULAR HGB CONC 31.2 G/dL (31.0-37.0); MEAN CORPUSCULAR VOLUME 95 fL (80-100); MONOCYTES # (AUTO) 0.4 K/uL (0.1-1.0); MONOCYTES % (AUTO) 4.1 % (2.0-9.0); NEUTROPHILS # (AUTO) 8.2 K/uL (1.8-7.7); PLATELET COUNT (AUTO) 57 K/uL (150-450); RED BLOOD CELL COUNT(AUTO) 3.69 MIL/uL (4.50-5.90); RED CELL DISTRIBUTION WIDTH 21.9 % (11.5-14.5)
[2022-07-20 06:04] LABS: NEUTROPHILS % (AUTO) 86.4 % (40.0-70.0)
[2022-07-20 06:11] LABS: ALBUMIN 1.7 g/dL (3.4-5.0); BILIRUBIN,TOTAL 0.7 mg/dL (0.1-1.0); CALCIUM, TOTAL 7.1 mg/dL (8.8-10.5); CREATININE 2.81 mg/dL (0.60-1.30); POTASSIUM 3.4 mmol/L (3.5-5.1); TOTAL PROTEIN, SERUM 5.1 g/dL (6.4-8.2)
[2022-07-20 06:51] LABS: GLUCOMETER DEV NAME(LOC) 5N.3; GLUCOSE,POINT OF CARE 176 MG/DL (70-110)
[2022-07-20 07:23] VITALS: BP 119/89
[2022-07-20] MEDS: HEPARIN SODIUM,PORCINE 5,000 UNITS/ML VIAL SQ SCH ×2 (08:37→16:08)
[2022-07-20] MEDS: CHLORHEXIDINE GLUCONATE 0.12% 15 ML UDCUP ORAL RINSE MM SCH ×2 (08:39→20:32)
[2022-07-20] MEDS: METOPROLOL TARTRATE 25 MG TABLET PO SCH ×2 (08:39→20:32)
[2022-07-20] MEDS: TACROLIMUS 0.5 MG CAPSULE PO SCH ×2 (08:39→20:32)
[2022-07-20] MEDS: FUROSEMIDE 20 MG/2 ML VIAL IVP SCH ×3 (08:39→21:00)
[2022-07-20] MEDS: CALCITRIOL 0.25 MCG CAPSULE NG SCH (08:39)
[2022-07-20] MEDS: HYDROCORTISONE SOD SUCC 100 MG/2 ML VIAL IVP SCH (08:39)
[2022-07-20 10:24] LABS: MAGNESIUM 1.9 mg/dL (1.80-2.40)
[2022-07-20] MEDS: MEROPENEM 500 MG in SODIUM CHLORIDE 0.9% 50 ML IV SCH ×2 (11:05→23:00)
[2022-07-20] MEDS: AmLODIPine BESYLATE 5 MG TABLET PO SCH (11:06)
[2022-07-20 11:57] VITALS: BP 130/63
[2022-07-20] MEDS: INSULIN LISPRO 100 UNITS/ML SQ PRN ×3 (12:37→20:33)
[2022-07-20] MEDS: FLUCONAZOLE 200 MG/NACL ISOOSM 100 ML IV SCH (14:29)
[2022-07-20 15:39] VITALS: BP 108/80
[2022-07-20] MEDS ORDERED: 0.9% SODIUM CHLORIDE 5 ML NEB SOLUTION NEB ONE (17:22)
[2022-07-20 18:51] LABS: GLUCOMETER DEV NAME(LOC) 5S.1B; GLUCOSE,POINT OF CARE 259 MG/DL (70-110)
[2022-07-20 18:51] LABS: GLUCOMETER DEV NAME(LOC) 5S.1B; GLUCOSE,POINT OF CARE 127 MG/DL (70-110)
[2022-07-20 18:51] LABS: GLUCOMETER DEV NAME(LOC) 5S.1B; GLUCOSE,POINT OF CARE 214 MG/DL (70-110)
[2022-07-20 20:50] VITALS: BP 147/68
[2022-07-20] MEDS: MELATONIN 3 MG TABLET PO PRN (22:24)
[2022-07-21 00:25] VITALS: BP 159/77
[2022-07-21] MEDS: ACETYLCYSTEINE 10% 100 MG/ML 4 ML NEB SOLUTION NEB SCH ×3 (02:36→11:00)
[2022-07-21] MEDS: ALBUTEROL SULFATE 2.5 MG/0.5 ML NEB SOLUTION NEB SCH ×6 (02:36→23:00)
[2022-07-21 04:45] VITALS: BP 164/96
[2022-07-21] MEDS: VANCOMYCIN HCL 125 MG/2.5 ML SOLUTION ORAL.SYG PO SCH ×5 (05:53→23:14)
[2022-07-21] MEDS: INSULIN LISPRO 100 UNITS/ML SQ PRN ×4 (05:59→20:48)
[2022-07-21 07:35] VITALS: BP 151/56
[2022-07-21 07:40] LABS: BASOPHILS % (AUTO) 0.6 % (0.0-2.0); EOSINOPHILS % (AUTO) 0.3 % (1.0-6.0); HEMATOCRIT 32.6 % (41-53); HEMOGLOBIN 10.1 g/dL (13.5-17.5); LYMPHOCYTES # (AUTO) 1.3 K/uL (1.0-4.8); LYMPHOCYTES % (AUTO) 13.3 % (22.0-44.0); MEAN CORPUSCULAR HEMOGLOBIN 29.5 pg (26.0-34.0); MEAN CORPUSCULAR VOLUME 95 fL (80-100); MONOCYTES # (AUTO) 0.6 K/uL (0.1-1.0); MONOCYTES % (AUTO) 5.7 % (2.0-9.0); NEUTROPHILS % (AUTO) 80.1 % (40.0-70.0); PLATELET COUNT (AUTO) 59 K/uL (150-450); RED BLOOD CELL COUNT(AUTO) 3.42 MIL/uL (4.50-5.90); RED CELL DISTRIBUTION WIDTH 21.6 % (11.5-14.5)
[2022-07-21 08:02] LABS: CALCIUM, TOTAL 7.4 mg/dL (8.8-10.5); CREATININE 2.85 mg/dL (0.60-1.30); PHOSPHORUS 4.1 mg/dL (2.5-4.9); POTASSIUM 3.4 mmol/L (3.5-5.1)
[2022-07-21] MEDS ORDERED: 0.9% SODIUM CHLORIDE 5 ML NEB SOLUTION NEB ONE ×4 (08:11→19:41)
[2022-07-21] MEDS: TACROLIMUS 0.5 MG CAPSULE PO SCH ×2 (08:12→20:45)
[2022-07-21] MEDS: METOPROLOL TARTRATE 25 MG TABLET PO SCH ×2 (08:12→20:45)
[2022-07-21] MEDS: CALCITRIOL 0.25 MCG CAPSULE NG SCH (08:13)
[2022-07-21] MEDS: AmLODIPine BESYLATE 5 MG TABLET PO SCH (08:13)
[2022-07-21] MEDS: CHLORHEXIDINE GLUCONATE 0.12% 15 ML UDCUP ORAL RINSE MM SCH ×2 (08:13→20:45)
[2022-07-21] MEDS: FUROSEMIDE 20 MG/2 ML VIAL IVP SCH (10:23)
[2022-07-21] MEDS: HYDROCORTISONE SOD SUCC 100 MG/2 ML VIAL IVP SCH (10:23)
[2022-07-21 10:41] LABS: GLUCOMETER DEV NAME(LOC) 5S.2B; GLUCOSE,POINT OF CARE 165 MG/DL (70-110)
[2022-07-21] MEDS: MEROPENEM 500 MG in SODIUM CHLORIDE 0.9% 50 ML IV SCH ×2 (11:20→23:01)
[2022-07-21 11:35] VITALS: BP 147/64
[2022-07-21] MEDS: FLUCONAZOLE 200 MG/NACL ISOOSM 100 ML IV SCH (15:53)
[2022-07-21 16:00] VITALS: BP 121/63
[2022-07-21 18:51] LABS: GLUCOMETER DEV NAME(LOC) 5S.1B; GLUCOSE,POINT OF CARE 219 MG/DL (70-110)
[2022-07-21 20:25] VITALS: BP 178/88
[2022-07-21] MEDS ORDERED: FUROSEMIDE 40 MG/4 ML VIAL IVP SCH (21:00)
[2022-07-21 21:12] LABS: GLUCOMETER DEV NAME(LOC) 5N.3; GLUCOSE,POINT OF CARE 223 MG/DL (70-110)
[2022-07-21 21:12] LABS: GLUCOMETER DEV NAME(LOC) 5N.1C; GLUCOSE,POINT OF CARE 171 MG/DL (70-110)
[2022-07-21] MEDS ORDERED: SODIUM CHLORIDE 0.9% 500 ML IV ONE (23:05)
[2022-07-22 00:33] VITALS: BP 165/89
[2022-07-22 01:51] LABS: GLUCOMETER DEV NAME(LOC) 5S.1B; GLUCOSE,POINT OF CARE 155 MG/DL (70-110)
[2022-07-22] MEDS ORDERED: 0.9% SODIUM CHLORIDE 5 ML NEB SOLUTION NEB ONE ×5 (02:38→19:10)
[2022-07-22] MEDS: ALBUTEROL SULFATE 2.5 MG/0.5 ML NEB SOLUTION NEB SCH ×5 (03:32→19:13)
[2022-07-22 04:23] VITALS: BP 158/92
[2022-07-22] MEDS: VANCOMYCIN HCL 125 MG/2.5 ML SOLUTION ORAL.SYG PO SCH ×3 (05:03→17:52)
[2022-07-22 06:39] LABS: BASOPHILS % (AUTO) 1.2 % (0.0-2.0); EOSINOPHILS % (AUTO) 0.1 % (1.0-6.0); HEMATOCRIT 32.2 % (41-53); HEMOGLOBIN 10.2 g/dL (13.5-17.5); LYMPHOCYTES # (AUTO) 1.3 K/uL (1.0-4.8); LYMPHOCYTES % (AUTO) 13.3 % (22.0-44.0); MEAN CORPUSCULAR HEMOGLOBIN 29.7 pg (26.0-34.0); MEAN CORPUSCULAR HGB CONC 31.6 G/dL (31.0-37.0); MEAN CORPUSCULAR VOLUME 94 fL (80-100); MONOCYTES # (AUTO) 0.6 K/uL (0.1-1.0); NEUTROPHILS # (AUTO) 7.6 K/uL (1.8-7.7); NEUTROPHILS % (AUTO) 79.4 % (40.0-70.0); PLATELET COUNT (AUTO) 60 K/uL (150-450); RED BLOOD CELL COUNT(AUTO) 3.42 MIL/uL (4.50-5.90); RED CELL DISTRIBUTION WIDTH 21.6 % (11.5-14.5)
[2022-07-22 06:58] LABS: CALCIUM, TOTAL 7.5 mg/dL (8.8-10.5); CREATININE 2.62 mg/dL (0.60-1.30)
[2022-07-22 07:01] LABS: POTASSIUM 2.9 mmol/L (3.5-5.1)
[2022-07-22 07:33] VITALS: BP 164/86
[2022-07-22] MEDS: POTASSIUM CHL 10 MEQ/WATER 50 ML IV SCH ×4 (08:09→12:26)
[2022-07-22] MEDS: CHLORHEXIDINE GLUCONATE 0.12% 15 ML UDCUP ORAL RINSE MM SCH (09:12)
[2022-07-22] MEDS: METOPROLOL TARTRATE 25 MG TABLET PO SCH (09:12)
[2022-07-22] MEDS: AmLODIPine BESYLATE 5 MG TABLET PO SCH (09:12)
[2022-07-22] MEDS: CALCITRIOL 0.25 MCG CAPSULE NG SCH (09:12)
[2022-07-22] MEDS: TACROLIMUS 0.5 MG CAPSULE PO SCH (09:12)
[2022-07-22] MEDS: HYDROCORTISONE SOD SUCC 100 MG/2 ML VIAL IVP SCH (09:13)
[2022-07-22] MEDS ORDERED: SODIUM CHLORIDE 0.9% 250 ML IV ONE (09:40)
[2022-07-22] MEDS: MEROPENEM 500 MG in SODIUM CHLORIDE 0.9% 50 ML IV SCH ×2 (10:45→19:00)
[2022-07-22 11:45] VITALS: BP 143/47
[2022-07-22] MEDS: INSULIN LISPRO 100 UNITS/ML SQ PRN ×2 (12:22→17:54)
[2022-07-22] MEDS ORDERED: CALC0.2521 NG (12:38)
[2022-07-22] MEDS ORDERED: VANCOPO PO (12:38)
[2022-07-22] MEDS ORDERED: TACR0.5C21 PO (12:38)
[2022-07-22] MEDS ORDERED: AMLO-257 PO (12:38)
[2022-07-22] MEDS ORDERED: METO25 PO (12:38)
[2022-07-22] MEDS ORDERED: FURO40 PO (12:38)
[2022-07-22] MEDS ORDERED: FLUC200T85 PO (12:38)
[2022-07-22 13:51] LABS: GLUCOMETER DEV NAME(LOC) 5N.3; GLUCOSE,POINT OF CARE 129 MG/DL (70-110)
[2022-07-22 13:51] LABS: GLUCOMETER DEV NAME(LOC) 5S.2B; GLUCOSE,POINT OF CARE 215 MG/DL (70-110)
[2022-07-22] MEDS ORDERED: MERO500P IVPB (15:37)
[2022-07-22 15:52] VITALS: BP 125/91
[2022-07-22 17:31] LABS: GLUCOMETER DEV NAME(LOC) 5S.1B; GLUCOSE,POINT OF CARE 202 MG/DL (70-110)
[2022-07-22] MEDS ORDERED: FUROSEMIDE 40 MG TABLET PO SCH (21:00)
== END 2022-07-22 20:00 | disposition home health service (06) | DRG 870 ==
LOC: EMS 15:57 → ICU 07-09 03:27 → 5S 07-17 14:00
PROVIDERS: ADMIT Internal Medicine; ATTEND Internal Medicine
PROC: 0BH17EZ Insertion of Endotracheal Airway into Trachea, Via Natural or Artificial Opening (ICD-10-PCS; 2022-07-09)
PROC: 5A1955Z Respiratory Ventilation, Greater than 96 Consecutive Hours (ICD-10-PCS; 2022-07-09)
PROC: 0B978ZZ Drainage of Left Main Bronchus, Via Natural or Artificial Opening Endoscopic (ICD-10-PCS; 2022-07-09)
PROC: 0B938ZZ Drainage of Right Main Bronchus, Via Natural or Artificial Opening Endoscopic (ICD-10-PCS; 2022-07-09)
PROC: 5A1D70Z Performance of Urinary Filtration, Intermittent, Less than 6 Hours Per Day (ICD-10-PCS; principal; 2022-07-14)
PROC: 5A1D70Z Performance of Urinary Filtration, Intermittent, Less than 6 Hours Per Day (ICD-10-PCS; 2022-07-15)
PROC: 05HY33Z Insertion of Infusion Device into Upper Vein, Percutaneous Approach (ICD-10-PCS; 2022-07-22)
DX: A41.9 Sepsis, unspecified organism (principal); J96.01 Acute respiratory failure with hypoxia; J18.9 Pneumonia, unspecified organism; I50.33 Acute on chronic diastolic (congestive) heart failure; N18.6 End stage renal disease; N39.0 Urinary tract infection, site not specified; E87.1 Hypo-osmolality and hyponatremia; E87.2 Acidosis; I13.2 Hypertensive heart and chronic kidney disease with heart failure and with stage 5 chronic kidney disease, or end stage renal disease; I47.1 Supraventricular tachycardia; J98.11 Atelectasis; N17.9 Acute kidney failure, unspecified; T86.19 Other complication of kidney transplant; Z99.11 Dependence on respirator [ventilator] status; T17.890A Other foreign object in other parts of respiratory tract causing asphyxiation, initial encounter; Z20.822 Contact with and (suspected) exposure to COVID-19; E11.51 Type 2 diabetes mellitus with diabetic peripheral angiopathy without gangrene; D63.1 Anemia in chronic kidney disease; D69.6 Thrombocytopenia, unspecified; E11.22 Type 2 diabetes mellitus with diabetic chronic kidney disease; E11.319 Type 2 diabetes mellitus with unspecified diabetic retinopathy without macular edema; E83.42 Hypomagnesemia; E83.51 Hypocalcemia; E87.6 Hypokalemia; H54.7 Unspecified visual loss; I25.10 Atherosclerotic heart disease of native coronary artery without angina pectoris; I48.91 Unspecified atrial fibrillation; N48.5 Ulcer of penis; X58.XXXA Exposure to other specified factors, initial encounter; Y83.0 Surgical operation with transplant of whole organ as the cause of abnormal reaction of the patient, or of later complication, without mention of misadventure at the time of the procedure; Y92.89 Other specified places as the place of occurrence of the external cause; Z51.5 Encounter for palliative care; Z79.4 Long term (current) use of insulin; Z79.52 Long term (current) use of systemic steroids; Z79.899 Other long term (current) drug therapy; Z86.16 Personal history of COVID-19; Z89.021 Acquired absence of right finger(s); Z89.511 Acquired absence of right leg below knee; Z89.612 Acquired absence of left leg above knee; Z99.2 Dependence on renal dialysis; Y93.89 Activity, other specified; Y99.8 Other external cause status
CPT/HCPCS: 31500; 31624; 36600; 51702; 70450; 71045; 71250; 72192; 74150; 76770; 76776; 76870; 80048; 80053; 80197; 80202; 81001; 81002; 82570; 82784; 82805; 82962; 83605; 83735; 83880; 83930; 83935; 84100; 84132; 84155; 84156; 84165; 84166; 84300; 84484; 85025; 86140; 86334; 87015; 87040; 87070; 87081; 87086; 87101; 87186; 87205; 87206; 87220; 87340; 87449; 87899; 90935; 92610; 93005; 93306; 94003; 94640; 94660; 97162; 97167; 97530; 97535; 99291; G0378; J0360; J0692; J0696; J1450; J1644; J1720; J1940; J2185; J2250; J3370; J3475; J3480; J3490; J7030; J7040; J7050; J7060; J7507; Q9967; 36415-L1; 36415-TC; J7613; Z7610